=== PATIENT | male | born 1980 | race Caucasian/White ===

== ENCOUNTER → 2025-02-22 | Outpatient (CLI) | payer OTHER, SELFPAY ==
--- NOTE | 2025-02-22 17:11 | CT_ITS ---
PROCEDURE: ABDOMEN/PELVIS WITH CONTRAST 02/22/2025 REASON FOR EXAM: ABDOMINAL MASS TECHNIQUE: Procedure Code: [id number] Modality: CT Procedure: ABDOMEN/PELVIS WITH CONTRAST Coronal and Sagittal reconstruction series were provided. CONTRAST: VOLUME: mL One or more dose reduction techniques were used (e.g., Automated exposure control, adjustment of the mA and/or kV according to patient size, use of iterative reconstruction technique. FINDINGS: The visualized lung bases are clear. The liver, gallbladder, pancreas, spleen, adrenal glands, kidneys, and urinary bladder appear unremarkable. No evidence of a bowel obstruction. A moderate amount of stool is seen within the right side of the colon. Mild wall thickening of the transverse and descending colon may represent mild colitis. The appendix is visualized and unremarkable. No intraperitoneal free air or free fluid. No abdominal nor pelvic lymphadenopathy. No acute osseous abnormality. No acute fracture. 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 CT/Abdomen/Pelvis WITH Contrast IMPRESSION: Mild wall thickening of the transverse and descending colon may represent mild colitis. Please correlate clinically. Otherwise no acute abdominal or pelvic process. Reading Location: [id number]
== END | disposition home or self-care (01) ==
LOC: CT 17:08
PROVIDERS: PCP Physician Assistant; Referring Provider Physician Assistant; Visit Provider Physician Assistant
DX: R19.00 Intra-abdominal and pelvic swelling, mass and lump, unspecified site (principal)
CPT/HCPCS: 74177; Q9967

== ENCOUNTER 2025-03-15 05:49 | Day surgery (SDC) | payer OTHER, SELFPAY ==
[2025-03-15] VITALS (13 sets, daily range): BP systolic 119–150; BP diastolic 60–83; PULSE 58–79; RESP 14–20; TEMP 36.4–36.6; O2SAT 92–98; BMI 31.6
--- OUTSIDE RECORDS SUMMARY | 2025-03-15 05:51 | XMS RPT_ITS | CCD ---
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 Vehicle Crewman Name Role Phone Unavailable Primary Care Provider Unavailyimi BrooksAlexis PA-C, Luke E Unavailable [phone] Diabetes & Endocrinology Teixeira Unavailable KATELYN Attending Unavailable Unavailable Unavailable BEATRICE FEDERAL JUDGE-SUPERVISOR FORMING AND TEMPERING, JILLIAN Andrews Attending Unavaila ble FRIES FEDERAL JUDGE-SUPERVISOR FORMING AND TEMPERING, JILLIAN H Attending Unavaila ble JRJESSICA PAC Attending Unavailable JRJESSICA PAC Admitting Unavailable JR, JESSICA PAC Primary Care Unavailable ALEXIS, LUKE E Consulting Unavailable PROVIDER, UNKNOWN Consulting Unavailable ALEXIS, LUKE E Consulting Unavailable FRISEAN, JILLIAN TIRE SPECIALIST Admitting Unavailable FRISEAN, JILLIAN TIRE SPECIALIST Primary Care Unavailable FRISEAN, JILLIAN TIRE SPECIALIST Attending Unavailable PROVIDER, UNKNOWN Consulting Unavailable FRIES, JILLIAN TIRE SPECIALIST Admitting Unavailable FRIES, JILLIAN TIRE SPECIALIST Primary Care Unavailable FRIES, JILLIAN TIRE SPECIALIST Attending Unavailable ALEXIS, LUKE E Consulting Unavailable PROVIDER, UNKNOWN Consulting Unavailable ALEXIS, LUKE E Referring Unavailable BROOKLYNNBRETT Admitting Unavailable BROOKLYNNBRETT Primary Care Unavailable BROOKLYNNBRETT Attending Unavailable ALEXIS, LUKE E Consulting Unavailable PROVIDER, UNKNOWN Consulting Unavailable Edwin Zaldivar Attending Unavailable Alexis, Luke Referring Unavailable Alexis, Luke Primary Care Unavailable Alexis, Luke Referring Unavailable Alexis, Luke Attending Unavailable Alexis, Luke Primary Care Unavailable Alexis, Luke Primary Care Unavailable Edwin Zaldivar Referring Unavailable Edwin Zaldivar Attending Unavailable Medications Current Medications Medication Drug Class(es) Dates Sig (Normalized) Sig (Original) doxycycline hyclate 100 mg oral tablet (1 source) Tetracycline-class Drug Start: 01-26-2024 End: 02-02-2024 take 1 tablet by mouth twice daily doxycycline (VIBRA-TABS) 100 mg tablet Indications: Abscess Take 1 tablet by mouth two times a day for 7 days. 14 tablet 01/26/2024 02/02/2024 Active ibuprofen 800 mg oral tablet (1 source) Nonsteroidal Anti-inflammatory Drug Start: 06-22-2013 take 1 tablet by mouth every eight hours as needed for pain ibuprofen 800 mg tablet Indications: Back pain Take 1 tablet by mouth every 8 hours as needed for Pain (with food.). 30 tablet 0 06/22/2013 Active Completed/Discontinued Medications Medication Drug Class(es) Dates Sig (Normalized) Sig (Original) 1 ml testosterone cypionate 200 mg/ml injection (11 sources) Androgen Start: 06-25-2024 End: 07-23-2024 inject 0.6 mL by intramuscular injection every week testosterone cypionate 200 mg/mL intramuscular oil ; 0.6 mL weekly for 28 days Quantity: 10 {Milliliter} Refills: 0 Ordered: 25-Jun-2024 RAJ Espinoza Start: 25-Jun-2024 End: 23-Jul-2024 Status: Inactive Comments: or other applicable amount inject 0.6 mL by int ramuscular injection every week testosterone cypionate 100 mg/mL intramuscular oil ; 0.6mL weekly (100 mg/mL) Comment on above: or other applicable amount Problems Active Problems Problem Classification Problem Date Documented Da te Episodic/Chronic Intracranial injury (1 source) Other specified intracranial injury without loss of consciousness, initial encounter; Translations: [Other specified intracranial injury without loss of consciousness, initial encounter] Onset: 12-12-2024 Episodic Other connective tissue disease (3 sources) Pain in left arm; Translations: [Pain in left arm] Onset: 12-12-2024 Episodic Other endocrine disorders (17 sources) Hypotestosteronism; Translations: [Testicular hypofunction] 05-26-2024 Chronic Other gastrointestinal disorders (1 source) Intra-abdominal and pelvic swelling, mass and lump, unspecified site; Translations: [Intra-abdominal and pelvic swelling, mass and lump, unspecified site] Onset: 03-02-2025 Episodic Other non-traumatic joint disorders (1 source) Pain in left elbow; Translations: [Pain in left elbow] Onset: 12-12-2024 Episodic Skin and subcutaneous tissue infections (1 source) Abscess; Translations: [Cutaneous abscess, unspecified] 01-26-2024 Episodic Unclassified (6 sources) Follow up for chronic condition - The patient is here for follow-up of other condition(s) (low testosterone). The patient always takes the prescribed medications. No side effects noted. The patient has an active lifestyle but no regular exercise program. Note for "Chronic condition follow-up": Patient is here to establish care, and talk about testosterone. 05-26-2024 Past or Other Problems Problem Classification Problem Date Documented Da te Episodic/Chronic Blindness and vision defects (2 sources) Myopia; Translations: [Myopia, unspecified eye] Onset: 07-21-2016 07-21-2016 Episodic Genitourinary symptoms and ill-defined conditions (1 source) Blood in urine; Translations: [Hematuria] Onset: 01-24-2007 11-07-2023 Episodic Other male genital disorders (1 source) Hemospermia; Translations: [Hematospermia] Onset: 01-24-2007 11-07-2023 Episodic Other male genital disorders (1 source) Disorder of prostate; Translations: [Disorder of prostate, unspecified] Onset: 01-24-2007 11-07-2023 Episodic NEGATED: Highlighted row has been ruled out!Unclassified (2 sources) No Problem Information Available Results Test Name Value Interpretation Reference Range Facil ity Surgery Visit Reporton 03-03 Surgery Visit Report [facility] [address] [place] [address] [address] [place] [address] OFFICE VISIT Date of Service: 03/03/25 MR#: [id number] Acct: [id number] Name: KEON VICTORIA Rep #: [id number] : 1980 Provider: Dr. Edwin garcia MD Age/Sex: 44/M Location: [facility] Status: Signed Intake Vital Signs 03/03/25 14:09 Height 5 ft 9 in Weight: 225 lb BMI 33.2 BP 141/83 H Blood Pressure Location Rt brachial Position Sitting Respiration 16 Intake Visit Reasons: BILAT INGUINAL HERNIAS Chief Complaint: bilateral inguinal hernias Medical Concierge Required: No Is patient in pain?: No Allergies No Known Allergies Allergy (Unverified 03/03/25 14:09) Medications ???Medication ???Instructions ???Recorded ???Confirmed ???Type testosterone cypionate 200 mg/mL 100 mg IM QWEEK 03/03/25 03/03/25 History intramuscular oil Have you fallen in the past year?: No PFSH Medical History (Updated 03/03/25 @ 14:07 by Tonya Sandoval) Abdominal mass Testosterone deficiency Bulge in groin area Surgical History (Updated 03/03/25 @ 14:07 by Tonya Sandoval) History of umbilical hernia repair History of surgery on upper extremity Family History (Updated 03/03/25 @ 14:08 by Tonya Sandoval) Grandmother Breast cancer Father Heart disease Social History (Updated 03/03/25 @ 14:09 by Tonya Sandoval) Smoking Status: Never smoker Smokeless tobacco user: chewing tobacco alcohol intake: current HPI HPI HPI: The patient is a 44-year-old male who is being seen today for possible bilateral inguinal hernias. The patient has been having bilateral groin discomfort for several months now. He has noticed bulging in bilateral groin regions. He also described an incident about a month ago where he was doing some work on his vehicle, and noticed a sudden pain and swelling in the left side of his abdomen just above and lateral to the umbilicus. Patient had a recent CT scan that did not comment on any obvious ventral, spigelian or even inguinal hernias. He presents today for further evaluation and treatment of his symptoms and to discuss possible hernia repair if indicated Exam Const General: cooperative, healthy appearing, comfortable and well developed [facility] Head: normal to inspection Eyes General: appearance normal, both eyes and all related structures Neck Neck: normal visual inspection Resp Effort Inspection: normal respiratory effort and able to speak in complete sentences GI Inspection: normal to inspection Other: Patient has some discomfort just to the left of the left rectus muscle but above the umbilicus. I could not appreciate any obvious ventral or spigelian hernia. Other: Palpation of the groin regions reveals fairly small fat-containing bilateral inguinal hernias. Mild discomfort with palpation Assessment and Plan Assessment and Plan (1) Bulge in groin area: Status: Acute Comment: bilateral (2) Abdominal mass: Status: Acute Plan: The patient is a 44-year-old male with bilateral inguinal hernias. I have offered him bilateral robotic hernia repair with mesh. As far as the abdominal bulge that he described about a month ago, I really do not appreciate any obvious hernia in this vicinity on imaging or on examination. I did however suggest that we can visualize this area at the time of the surgery to rule out the possibility of a spigelian hernia. We discussed the details of the planned procedure including risks benefits alternatives and he wishes to proceed. This will be scheduled in a timely manner. Coding Level of Care Code Off vis,new,level 4 Diagnoses Bulge in groin area R19.09 Abdominal mass R19.00 Clinical Quality Measures Falls Risk Screening/Assistive Devices Have you fallen in the past year?: No 03/03/25 1511 Date Edwin Zaldivar MD Cosigner Signature: Date (if applicable) CC: Normal [facility] TESTOSTERONE, TOTAL & FREE, SERUM [CCL]on 02-24-2025 Free Testosterone 20.63 ng/dL High 1.78-8.03 [facility] Comment on above: Result Comment: Test ing performed by equilibrium dialysis (ED) and Liquid Chromatography-Tandem Mass Spectrometry (LC-MS/MS). This test was developed, and its performance characteristics determined by the [facility] Department of Pathology and Laboratory Medicine. It has not been cleared or approved by the FDA. The [facility] Department of Pathology and Laboratory Medicine is regulated under CLIA as qualified to perform high-complexity testing. This test is used for clinical purposes. It should not be regarded as investigational or for research. [address] [address] Jerzy Thao III, M.D. [id number] Performed By: #### 2 [id number] #### [facility],[address] [place] [address] Testosterone [Mass/Vol] 959.9 ng/dL High 240.0-950.0 [facility] Comment on above: Result Comment: Test ing performed by Liquid Chromatography- Tandem Mass Spectrometry (LC-MS/MS). This test was developed, and its performance characteristics determined by the [facility] Department of Pathology and Laboratory Medicine. It has not been cleared or approved by the FDA. The [facility] Department of Pathology and Laboratory Medicine is regulated under CLIA as qualified to perform high-complexity testing. This test is used for clinical purposes. It should not be regarded as investigational or for research. Performed By: #### 2 [id number] #### [facility],[address] [id number] Abdomen/Pelvis WITH Contrast on 02-22-2025 Abdomen/Pelvis WITH Contrast [facility] [address] [place] [address] Abdomen/Pelvis WITH Contrast MR#: [id number] Acct: [id number] Name: KEON VICTORIA Rep #: [id number] : 1980 M 44 From: Rocky Sneed MD PCP: SHILO Hilario Status: REG CLI Study: Abdomen/Pelvis WITH Contrast Date of Exam: Exam# [id number] Ordering Dr: Medhat Espinoza PROCEDURE: ABDOMEN/PELVIS WITH CONTRAST 02/22/2025 REASON FOR EXAM: ABDOMINAL MASS TECHNIQUE: Procedure Code: [id number] Modality: CT Procedure: ABDOMEN/PELVIS WITH CONTRAST Coronal and Sagittal reconstruction series were provided. CONTRAST: VOLUME: mL One or more dose reduction techniques were used (e.g., Automated exposure control, adjustment of the mA and/or kV according to patient size, use of iterative reconstruction technique. FINDINGS: The visualized lung bases are clear. The liver, gallbladder, pancreas, spleen, adrenal glands, kidneys, and urinary bladder appear unremarkable. No evidence of a bowel obstruction. A moderate amount of stool is seen within the right side of the colon. Mild wall thickening of the transverse and descending colon may represent mild colitis. The appendix is visualized and unremarkable. No intraperitoneal free air or free fluid. No abdominal nor pelvic lymphadenopathy. No acute osseous abnormality. No acute fracture. 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 CT/Abdomen/Pelvis WITH Contrast IMPRESSION: Mild wall thickening of the transverse and descending colon may represent mild colitis. Please correlate clinically. Otherwise no acute abdominal or pelvic process. Reading Location: [id number] CC: SHILO Hilario Director Of Sales: Signed Normal [facility] HEMATOCRITon 02-18-2025 Hematocrit (Bld) [Volume fraction] 48.5 % Normal 40.0 - 52.0 [facility] Comment on above: Performed By: #### 2 [id number] #### [facility],[address] [place] [address] HEMOGLOBINon 02-18-2025 Hemoglobin (Bld) [Mass/Vol] 17.0 g/dL Normal 13.0 - 17.5 [facility] Comment on above: Performed By: #### 2 [id number] ####[facility],[address] [place], [place] [id number] SGOT (AST)on 02-18-2025 AST [Catalytic activity/Vol] 23 U/L Normal 15 - 37 [facility] Comment on above: Performed By: #### 2 [id number] #### [facility],[address] [place] [address] SGPT (ALT)on 02-18-2025 ALT [Catalytic activity/Vol] 39 U/L Normal 16 - 63 [facility] Comment on above: Performed By: #### 2 [id number] ####[facility],[address] [place], [place] [id number] TESTOSTERONE, FREE AND TOTAL , BY EQUILIBRIUM DIALYSIS AND MASS SPECTROMETRYon 02-18-2025 Testosterone [Mass/Vol] 959.9 ng/dL High 240.0-950.0 [facility] Comment on above: Order Comment: Speci men Type: BLOOD SPECIMEN Ordering Facility: [facility] Address: [address] [place] [address] Result Comment: Test ing performed by Liquid Chromatography-Tandem Mass Spectrometry (LC-MS/MS). This test was developed, and its performance characteristics determined by the [facility] Department of Pathology and Laboratory Medicine. It has not been cleared or approved by the FDA. The [facility] Department of Pathology and Laboratory Medicine is regulated under CLIA as qualified to perform high-complexity testing. This test is used for clinical purposes. It should not be regarded as investigational or for research. Performed By: #### T ESTTF #### [facility] CLIA [id number] [address] [place] [address] [place] Testosterone Free [Mass/Vol] 20.63 ng/dL High 1.78-8.03 [facility] Comment on above: Order Comment: Speci men Type: BLOOD SPECIMEN Ordering Facility: [facility] Address: [address] [place] [address] Result Comment: Test ing performed by equilibrium dialysis (ED) and Liquid Chromatography-Tandem Mass Spectrometry (LC-MS/MS). This test was developed, and its performance characteristics determined by the [facility] Department of Pathology and Laboratory Medicine. It has not been cleared or approved by the FDA. The [facility] Department of Pathology and Laboratory Medicine is regulated under CLIA as qualified to perform high-complexity testing. This test is used for clinical purposes. It should not be regarded as investigational or for research. Performed By: #### T ESTTF #### [facility] CLIA [id number] [address] [place] [address] [place] MR ELBOW W/O LTon 12-14-2024 MR ELBOW W/O LT [address] [place] [address] Patient: KEON VICTORIA Phone#: : 1980 Age: 44 Gender: M Pt. Type: Out Account: [id number] Location: [facility] Ordering: JESSICA NORRIS Exam Date: 12/14/2024/13:40 Family Phys: MEDHAT ESPINOZA Charge Code: [id number] Physician: [place] Order #: [id number] Dose#: PROCEDURE: MRI ELBOW LT WITHOUT CONTRAST COMPARISON: None. INDICATIONS: Injury to fascia and tendon of left biceps TECHNIQUE: A complete multi-planar examination was performed without contrast. FINDINGS: Patient motion somewhat limits the evaluation. TENDONS EXTENSORS: There is mild hyperintense signal at the insertion of the common extensor tendon, series 4, image 17. FLEXORS: There is focal hyperintense signal at the insertion of the common flexor tendon, series 5, image 11 consistent with partial tear. OTHER: The biceps tendon demonstrates full-thickness tendon tear and retraction, approximately 6.4 cm, series 7, image 20 and series 4, image 21. There is edema near the insertion on the radial tuberosity. The brachialis tendon is intact. Triceps tendon is intact. LIGAMENTS RADIAL: Normal. No tear of the radial collateral, lateral ulnar collateral, or annular ligaments. ULNAR: Normal. No tear or bone marrow edema adjacent to the origin or insertion. MUSCLES: There is mild edema in the biceps brachii muscle. BONES: Normal. No edema, AVN, fracture, or significant arthropathy. EFFUSION: None. No synovitis or loose bodies. CUBITAL TUNNEL: Normal. Normal caliber and signal intensity of the ulnar nerve. OTHER: There is edema in the subcutaneous tissues of the medial elbow CONCLUSION: 1. Full-thickness biceps tendon tear with retraction 2. Common flexor tendon partial tear at the insertion 3. Common extensor tendon at the insertion mild hyperintense signal likely tendon strain versus mild partial tear Dictated by: Lisa Belle MD on 12/14/2024 at 20:35 Continued Report - Page 2 of 2 Patient: CAROLINACHRISTINEEL Robb Phone#: : 1980 Age: 44 Gender: M Pt. Type: Out Account: [id number] Location: 052 Ordering: JESSICA NORRIS Exam Date: 12/14/2024/13:40 Family Phys: MEDHAT ESPINOZA Charge Code: [id number] Physician: [place] Order #: [id number] Dose#: Approved by: Lisa Belle MD on 12/14/2024 at 21:08 Normal [facility] ORBITS (FOR MRI ONLY)on 11-27 ORBITS (FOR MRI ONLY) [address] [id number] Patient: CAROLINAKEON DICKSON. Phone#: : 1980 Age: 44 Gender: M Pt. Type: Out Account: [id number] Location: 052 Ordering: JESSICA JR Exam Date: 12/14/2024/14:07 Family Phys: MEDHAT ESPINOZA Charge Code: [id number] Physician: [place] Order #: [id number] Dose#: PROCEDURE: X-RAY ORBIT BILAT MRI SCREENING FOREIGN BODY COMPARISON: None. INDICATIONS: For MRI. FINDINGS: ORBITS: Negative for metallic foreign body. No radiopaque foreign object in the region of the orbits. OTHER: Radiopaque dental amalgam. CONCLUSION: 1. No radiopaque foreign object in the region of the orbits. Dictated by: Lisa Belle MD on 12/14/2024 at 16:42 Approved by: Lisa Belle MD on 12/14/2024 at 16:43 [facility] ED MED ADMINISTRATION DETAIL on 12-12-2024 ED MED ADMINISTRATION DETAIL Home Office Claim Specialist - KEON VICTORIA, : 1980, , [place] [address] [id number] 12/12/2024 Patient: KEON VICTORIA Sex: Male : 1980 Age: 44y MEASUREMENTS: Wt: 95.3 kg, Ht/Neal: 69.0 in, BMI: 31.01 ALLERGIES: No known drug allergies Medication Ordered Medication Administration Date/Time Ibuprofen (Motrin) 16:20 12/12 Ibuprofen (Motrin) PO 800 mg given. Allergies verified Given PO 800 mg (NOW and confirmed 5 rights. Information reviewed. Verbalizes 16:20 12/12/2024 x1) understanding. - 16:21 Christi Baum R.N. Scanned 1 of 1 [facility] ED NURSES CLINICAL NOTEon ED NURSES CLINICAL NOTE Nurse Narrative - KEON VICTORIA, : 1980, , Nurse Clinical Narrative [facility] [address] [place] [address] [id number] 12/12/2024 15:51:00 Patient: KEON VICTORIA Sex: Male : 1980 Age: 44y Disposition: Discharge to Home Disposition Decision Time: 16:31 12/12/2024 Departure Time: 16:52 12/12/2024 TRIAGE Arrived by private vehicle. Historian: (patient). Accompanied by family. Patient has a primary care physician. Primary physician (medhat hussein). Triage time: 15:56 12/12/2024. Acuity: LEVEL 3. Chief Complaint: INJURY TO THE LEFT ARM. ( pt was playing in a softball tournament and overswung the bat and felt a pop in his left bicep and felt/saw his bicep muscle curl up. pt went to the outfield and tried to use his arm to catch a fly ball and couldn't life his left arm and got hit in the head with a softball.). SEPSIS SCREEN: NEGATIVE. SIRS criteria negative: heart rate greater than 90. No possible sources of infection. -- 16:00 12/12/24 AMNA Yao R.N. 15:58 12/12/24. BP: 138/96 MAP: 110. HR: 111. RR: 20. O2 saturation: 93% Temperature: 98.7 F. Pain level now 5/10. -- 16:00 12/12/24 AMNA Yao R.N. Measurements: 16:00 12/12/24 Wt: 95.3 kg, Ht/Neal: 69.0 in, BMI: 31.01 -- 16:00 12/12/24 CARLINT Aditya Yao R.N. Medications: testosterone cypionate 200 mg/mL intramuscular oil -- 16:03 12/12/24 AMNA Yao R.N. 1 of 3 Nurse Narrative - KEON VICTORIA, : 1980, , Allergies: no known drug allergies -- 15:58 12/12/24 AMNA Yao R.N. Problems: no known problem -- 15:58 12/12/24 AMNA Yao R.N. Surgeries: no known surgical history -- 15:58 12/12/24 AMNA Yao R.N. History 15:56 12/12/24. SOCIAL HX: History of daily chewing tobacco use. Occasional alcohol use. No drug use. The patient has not traveled outside the [place] Infectious disease exposure: No infectious disease exposure. ABUSE ASSESSMENT: Abuse denied. SELF HARM ASSESSMENT: Self harm assessment was performed. The patient answered "no" to the question(s) "Do you have thoughts of harming or killing yourself?" and "Do you have a plan for harming or killing yourself?". FALL RISK ASSESSMENT: Fall risk assessment completed. No risk factors identified. -- 16:00 12/12/24 AMNA Yao R.N. 16:12/12/24. SOCIAL HX: Never smoker. -- 16:12/12/24 AMNA Yao R.N. Interventions 15:56 12/12/24. Advanced care plan discussed with patient. Patient does not have advanced directive. -- 16:00 12/12/24 AMNA Yao R.N. PHYSICAL ASSESSMENT 2 of 3 Nurse Narrative - KEON VICTORIA, : 1980, , 16:20 12/12/24. GENERAL / NEURO / PSYCH: Oriented X 4. Alert. Appears in no acute distress. ( Pt arrives ambulatory to ER#5 c/o left upper arm extremity injury while trying to hit a softball with a bat. Pt has a bulge noted to his left upper arm with limited ROM with extension. Pt also reports he was hit in the head with a softball because he tried to catch the ball and his arm would not flex leaving the softball to hit him in the head.). EXTREMITIES: Extremities do not exhibit normal ROM. Capillary refill is less than 2 seconds in the extremities. Extremity pulses are within normal limits. Neuro-vascular status intact to the extremity. Left arm: tenderness, swelling and deformity of the medial aspect of upper arm. No erythema, ecchymosis, laceration, abrasion or puncture wound. No foreign body. SKIN: Skin intact. Skin is warm and dry. -- 16:30 12/12/24 AMNA Caro R.N. 16:20 12/12/24. GENERAL / NEURO / PSYCH: Pupillary exam: Pupils are equal, round, and reactive to light. Right pupil 3mm. Left pupil: 3mm. -- 16:30 12/12/24 AMNA Caro R.N. NURSING PROGRESS NOTES 16:03 12/12/24. Patient transported to radiology by stretcher with distribution technician. -- 16:03 12/12/24 AMNA Caro R.N. 16:20 12/12/24. Sling applied to left arm by nurse; distal pulses intact, sensation intact and motor function within normal limits. -- 16:27 12/12/24 AMNA Caro R.N. 16:20 12/12/24. Ibuprofen (Motrin) PO 800 mg given. Allergies verified and confirmed 5 rights. Information reviewed. Verbalizes understanding. -- 16:21 12/12/24 AMNA Caro R.N. DISPOSITION / DISCHARGE Departure time: 16:52 12/12/2024. Condition at departure: improved. Discharge instructions provided and reviewed with the patient. Patient verbalized understanding. Written instructions provided in Bel[place]ian. The patient was discharged by the physician. The patient was discharged home and accompanied by spouse. The patient left ambulatory and via private vehicle. Spouse driving. -- 16:53 12/12/24 EDT Guerda Caro R.N. (Electronically signed by (more content not included)... Normal [facility] ED ORDER SHEET (CPOE ONLY)on 12-12-2024 ED ORDER SHEET (CPOE ONLY) Order Sheet - KEON VICTORIA, : 1980, , Order Sheet [address] [address] [id number] 12/12/2024 Patient: KEON VICTORIA Sex: Male : 1980 Age: 44y MEASUREMENTS: Wt: 95.3 kg, Ht/Neal: 69.0 in, BMI: 31.01 ALLERGIES: No known drug allergies MEDICATION/IV/DRIP/FL UID ORDERS Order Description Priority Entered Acknowledged Completed Ibuprofen (Motrin) PO800 mg 15:55 12/12/2024 16:02 16:21 (NOW x1) Brett Overton, 12/12/2024 12/12/2024 Guerda Sharpe R.NDeni RDeniN. LAB ORDERS Order Description Priority Entered Acknowledged Collected Completed DIAGNOSTIC STUDY ORDERS Order Description Priority Entered Acknowledged Completed Humerus L 2V Stat Stat 15:55 12/12/2024 16:02 16:55 Brett Overton, 12/12/2024 12/12/2024 Guerda Sharpe R.N. R.Aden. Reason for Study: Arm Pain STAFF ORDERS Order Description Priority Entered Acknowledged Collected Completed 1 of 2 Order Sheet - KEON VICTORIA, : 1980, , [Electronically signed by Brett Overton D.O. (12/12/2024 22:01 EDT)] 2 of 2 Normal [facility] ED PHYSICIAN CLINICAL REPORT on 12-12-2024 ED PHYSICIAN CLINICAL REPORT Narrative - KEON VICTORIA, : 1980, , Physician Clinical Narrative [address] [address] [id number] 12/12/2024 15:51:00 Patient: KEON VICTORIA Sex: Male : 1980 Age: 44y Disposition: Discharge to Home Disposition Decision Time: 16:31 12/12/2024 Departure Time: 16:52 12/12/2024 Measurements Wt: 95.3 kg, Ht/Neal: 69.0 in, BMI: 31.01 Initial Vital Sign Measured Time BP MAP HR RR O2Sat ETCO2 Temp Pain GCS RTS 15:58 12/12/2024 138/96 110 111 20 93% 98.7 F 5 Time Seen: 15:48 12/12/2024. Arrived- By private vehicle. Historian- patient. HISTORY OF PRESENT ILLNESS Chief Complaint: Injury to the left arm and Chief Complaint- Patient was swinging a bat and when he did he felt a pull as distal bicep then it kind of came up like a Dima. He then continued to play ball and there is a ball in the outfield and he can not put up his hand to grab it it was in his left hand on his glove. It then hit his head. Patient has been getting a in the park home run. And he presents to the emergency department because of pain to his biceps. The injury happened just prior to arrival. Occurred at an athletic field. Twisting injury. REVIEW OF SYSTEMS MUSCULOSKELETAL: No swelling. NEUROLOGICAL: The patient has had weakness. No tingling. SKIN: No suspected foreign body or skin laceration. 1 of 3 KEON Carolina, : 1980, , PAST HISTORY See nurses notes. no known problem Surgeries: no known surgical history Medications: testosterone cypionate 200 mg/mL intramuscular oil Allergies: no known drug allergies SOCIAL HISTORY Occasional alcohol use. No drug use. ADDITIONAL NOTES The nursing notes have been reviewed. PHYSICAL EXAM Appearance: Alert. Oriented X3. No acute distress. Head: Head atraumatic. Eyes: Pupils equal, round and reactive to light. Eyes normal inspection. ENT: Ears normal. Nose normal. Neck: Normal inspection. Neck supple. CVS: Normal heart rate and rhythm. Heart sounds normal. Respiratory: No respiratory distress. Breath sounds normal. Abdomen: No visible injury. Soft and nontender. Back: Normal inspection. No tenderness. Skin: Skin warm and dry. Normal skin color. Normal skin turgor. Extremities: Left arm. Neurovascular intact distally. (patient has a defect in the left bicipital groove of the left arm. Consistent with bicept tear system of the bicep tear). 2 of 3 Joey KEON ALBARADO, : 1980, , Neuro, Vascular and Tendons: Sensation intact. Motor intact. Neuro: Oriented X 3. No motor deficit. PROGRESS AND PROCEDURES MEDICAL DECISION MAKING: (Patient was swinging a bat and when he did he felt a pull as distal bicep then it kind of came up like a Dima. He then continued to play ball and there is a ball in the outfield and he can not put up his hand to grab it it was in his left hand on his glove. It then hit his head. Patient has been getting a in the park home run. And he presents to the emergency department because of pain to his biceps. patient has a deformity of the biceps on the left. Had x-rays returned unremarkable. We will place him in a sling and be discharged home he did a ball did hit his head he is acting appropriate he is neurovascularly intact. And he is told return if any problems concerns all follow up with Dr. Ramsey for his bicep tear.). Disposition: Condition: stable. Discharge decision based on the following: patient's condition is stable; patient's exam is stable. CLINICAL IMPRESSION Acute upper extremity pain involving the left upper arm and left elbow (left bicep tear). Minor closed head injury. DISCHARGE INSTRUCTIONS Apply ice. Wear sling. Rest. Follow-up with: Edwin Pope MD, [facility], Orthopedic, Phone: [phone], [facility] [place] [address]. Follow up in three days. Call for an appointment. (use sling. to range motion exercises 10 reps every hour while awake. return if any problems or concerns. if not acting normal return immediately to emergency department.). Medhat Ramesh PA-C, [facility], [facility], Phone: [phone], [address] [place] [address]. Follow up in three days. Call for an appointment. (follow up Medhat for your head injury). (Electronically signed by Brett Overton D.O. 12/12/24 22:01:50 EDT) Generated by [facility] 3 of 3 Normal [facility] ED SUPER BILLon 12-12-2024 ED SUPER BILL [facility] - KEON VICTORIA, : 1980, , [place] [id number] 12/12/2024 Patient: KEON VICTORIA Sex: Male : 1980 Age: 44y Item Professional Category Description Facility Code Code Quantity Fee Total Nurse/E/M EMERGENCY 292022 1 $0.00 $0.00 DEPARTMENT VISIT MODERATE SEVERITY (77984-74) Grand Total $0.00 Providers Brett Overton D.O. Chief Complaint Injury to the left arm and Chief Complaint- Patient was swinging a bat and when he did he felt a pull as distal bicep then it kind of came up like a Dima. He then continued to play ball and there is a ball in the outfield and he can not put up his hand to grab it it was in his left hand on his glove. It then hit his head. Patient has been getting a in the [place] home run. And he presents to the emergency department because of pain to his biceps. Principal Diagnosis 1 of 2 [facility] - KEON VICTORIA, : 1980, , Acute upper extremity pain involving the left upper arm and left elbow (left bicep tear). Minor closed head injury. ICD-10 Codes M79.622: Pain in left upper arm M25.522: Pain in left elbow S06.890A: Other specified intracranial injury without loss of consciousness, initial encounter 2 of 2 [facility] ED VISIT SUMMARYon ED VISIT SUMMARY Visit Overview - KEON VICTORIA, : 1980, , Visit [address] [address] [id number] 12/12/2024 Patient: KEON VICTORIA Sex: Male : 1980 Age: 44y 12/12/2024 10:01 PM EDT ED Arrival:15:51 12/12/2024 EDT Status: Recent Travel:no Language:eng Adv Directive:No Isolation Status: Ethnicity:N Fall Risk:no risk Infectious Disease Exposure:no Measurements:5'9" / 175.3 Self-Harm Status:no risk Sepsis Screen:negative cm 210.0 lb / 95.3 kg 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 pt went to the outfield and tried to use his arm to catch a fly ball and couldn't life his left arm and got hit in the head with a softball. ) ALLERGIES No Known Drug Allergies HOME MEDICATIONS 1 of 3 Visit Overview - KEON VICTORIA, : 1980, , testosterone cypionate 200 mg/mL intramuscular oil PAST MEDICAL HISTORY / PROBLEMS None See nurses notes PAST SURGICAL HISTORY No Surgeries SOCIAL HISTORY Smoking status: No Alcohol use: Yes Drug use: No ED COURSE MEDICATIONS GIVEN IN EMERGENCY DEPARTMENT 16:20 12/12/24 Ibuprofen (Motrin) PO 800 mg IV SITE INFORMATION INTAKE OUTPUT REASSESMENT (most recent) 16:20 12/12/24. GENERAL / NEURO / PSYCH: Pupillary exam: Pupils are equal, round, and reactive to light. Right pupil 3mm. Left pupil: 3mm. VITAL SIGNS First Vitals Last Vitals Temp 15:58 12/12/24 98.7 F Temp 15:58 12/12/24 98.7 F BP 15:58 12/12/24 138/96 BP 15:58 12/12/24 138/96 HR 15:58 12/12/24 111 HR 15:58 12/12/24 111 RR 15:58 12/12/24 20 RR 15:58 12/12/24 20 O2 Sat 15:58 12/12/24 93% O2 Sat 15:58 12/12/24 93% 2 of 3 Visit Overview - KEON VICTORIA, : 1980, , First Vitals Last Vitals Pain 15:58 12/12/24 5 Pain 15:58 12/12/24 5 ETCO2 15:58 12/12/24 ETCO2 15:58 12/12/24 GCS 15:58 12/12/24 GCS 15:58 12/12/24 RTS 15:58 12/12/24 RTS 15:58 12/12/24 PROCEDURES NURSING INTERVENTIONS LABS / STUDIES LABS / STUDIES ORDERED Humerus L 2V CLINICAL IMPRESSION ACUTE UPPER EXTREMITY PAIN INVOLVING THE LEFT UPPER ARM AND LEFT ELBOW (LEFT BICEP TEAR) MINOR CLOSED HEAD INJURY 3 of 3 Normal [facility] ED VITALS FLOW SHEETon 12-12 ED VITALS FLOW SHEET Vitals - KEON VICTORIA, : 1980, , Vital Sign Flow Sheet [address] [address] [id number] 12/12/2024 Patient: KEON VICTORIA Sex: Male : 1980 Age: 44y Measurements Wt: 95.3 kg, Ht/Neal: 69.0 in, BMI: 31.01 Measured Time BP MAP HR RR O2Sat ETCO2 Temp Pain GCS RTS 15:58 12/12/2024 138/96 110 111 20 93% 98.7 F 5 1 of 1 Normal [facility] HUMERUS LTon 12-12-[address] [address] Patient: KEON VICTORIA. Phone#: : 1980 Age: 44 Gender: M Pt. Type: ER Account: [id number] Location: [facility] Ordering: BRETT OVERTON Exam Date: 12/12/2024/16:07 Family Phys: LORA SANDY Charge Code: 845275 Physician: [place] Order #: [id number] Dose#: PROCEDURE: X-RAY HUMERUS LT 2 VIEWS COMPARISON: None. INDICATIONS: Pain. FINDINGS: BONES: Normal. No significant arthropathy or acute abnormality. SOFT TISSUES: Negative. No visible soft tissue swelling. EFFUSION: None visible. OTHER: Negative. CONCLUSION: No acute disease. Dictated by: Viviana Madden MD on 12/12/2024 at 22:30 Approved by: Viviana Madden MD on 12/12/2024 at 22:33 [facility] TFTESTon 10-25-2024 Free Testost Direct 9.5 pg/mL Normal 6.8-21.5 [facility] MA[facility] Comment on above: Result Comment: Perf ormed At: [facility] [place] [id number] [place], [place] [id number] Ruel Zarco MD Ph:[phone] Performed At: [facility] [place] [address] [place], [place] [id number] Bennie Hong PhD Ph:[phone] Performed By: #### H H, 586158, AST, ALT #### [place] [address] Testosterone Lvl 590 ng/dL Normal 264-916 [facility] MA[facility] Comment on above: Result Comment: Adul t male reference interval is based on a population of healthy nonobese males (BMI <30) between 19 and 39 years old. jose Woodward.al. JCEM 2017,102;0904-0921. PMID: [id number]. Performed By: #### H H, 908690, AST, ALT #### [place] [address] ALT/SGPTon 10-22-2024 ALT [Catalytic activity/Vol] 34 U/L Normal 12-55 [facility] Comment on above: Performed By: #### H H, 292993, AST, ALT #### [place] [address] Henry 10-22-2024 AST [Catalytic activity/Vol] 27 U/L Normal 8-34 [facility] Comment on above: Performed By: #### H H, 027162, AST, ALT #### [place] [id number] HHon 10-22-2024 Hematocrit (Bld) [Volume fraction] 50.0 % Normal 40.0-52.0 [facility] Comment on above: Performed By: #### H H, 180224, AST, ALT #### [place] [address] Hgb 17.3 G/dL Normal 13.0-17.5 [facility] Comment on above: Performed By: #### H H, 713743, AST, ALT #### [place] [address] TFTESTon 08-01-2024 Free Testost Direct 1.8 pg/mL Low 6.8-21.5 [facility] Comment on above: Result Comment: Perf ormed At: [address] [id number] Ruel Zarco MD Ph:[phone] Performed At: [facility] [id number] Bennie Hong PhD Ph:[phone] Performed By: #### H H, 187523, AST, ALT #### [place] [address] Testosterone Lvl 121 ng/dL Low 264-916 [facility] Comment on above: Result Comment: Adul t male reference interval is based on a population of healthy nonobese males (BMI <30) between 19 and 39 years old. Crissy et.al. JCEM 2017,102;1841-8806. PMID: [id number]. Performed By: #### H H, 296680, AST, ALT #### [place] [address] SOMATon 07-30-2024 IGF I 265 ng/mL Normal 84-270 [facility] Comment on above: Result Comment: Perf ormed At: [address] [id number] Ruel Zarco MD Ph:[phone] Performed By: #### H H, 571027, AST, ALT #### [place] [address] .GFRon 07-27-2024 Estimated Glomerular Filtration Rate 84 ml/min/1.73sqm Normal [facility] Comment on above: Result Comment: Stages of Chronic Kidney Disease (CKD) Stage Description eGFR(ml/min/1.73 sq.m.) CKD 1 Normal kidney function or >=90 normal kindney function with possible kidney damage (ex. Proteinuria) CKD 2 Kidney damage with mild loss 60-89 of kidney function CKD 3a Mild to moderate loss of kidney 45-59 function CKD 3b Moderate to severe loss of 30-44 of kindey function CKD 4 Severe loss of kidney function 15-29 CKD 5 Kidney failure <15 Note: (go live 2024) the eGFR calculation was updated to the 2020 CKD-EPI creatinine equation without a race factor to calculate the eGFR results. Performed By: #### H H, 854985, AST, ALT #### [place] [address] .Manual Diffon 07-27-2024 Basophil %, Manual 0.0 % Normal 0.0-2.5 [facility] Comment on above: Performed By: #### P SA, FSH, CK, CBC, DIFF, LH, TSH, FT4, 087875, GFR, PETE, MORPH, CMP, [id number], PROL #### [place] [address] Basophil, Abs Manual 0.0 10 3/mcL Normal 0.0-0.3 [facility] Comment on above: Performed By: #### P SA, FSH, CK, CBC, DIFF, LH, TSH, FT4, 925457, GFR, PETE, MORPH, CMP, [id number], PROL #### [place] [address] Eosinophil %, Manual 7.0 % High 0.0-6.0 [facility] Comment on above: Performed By: #### P SA, FSH, CK, CBC, DIFF, LH, TSH, FT4, 015530, GFR, PETE, MORPH, CMP, [id number], PROL #### [place] [address] Eosinophil, Abs Manual 0.5 10 3/mcL Normal 0.0-0.7 [facility] Comment on above: Performed By: #### P SA, FSH, CK, CBC, DIFF, LH, TSH, FT4, 447637, GFR, PETE, MORPH, CMP, [id number], PROL #### [place] [address] Lymphocyte %, Manual 27.0 % Normal 20.0-40.0 [facility] Comment on above: Performed By: #### P SA, FSH, CK, CBC, DIFF, LH, TSH, FT4, 425796, GFR, PETE, MORPH, CMP, [id number], PROL #### [address] [address] Lymphocyte, Abs Manual 1.9 10 3/mcL Normal 0.9-4.3 [facility] Comment on above: Performed By: #### P SA, FSH, CK, CBC, DIFF, LH, TSH, FT4, 745459, GFR, PETE, MORPH, CMP, [id number], PROL #### [address] [address] Monocyte %, Manual 8.0 % Normal 2.0-13.0 [facility] Comment on above: Performed By: #### P SA, FSH, CK, CBC, DIFF, LH, TSH, FT4, 064167, GFR, PETE, MORPH, CMP, [id number], PROL #### [address] [address] Monocyte, Abs Manual 0.6 10 3/mcL Normal 0.1-1.4 [facility] Comment on above: Performed By: #### P SA, FSH, CK, CBC, DIFF, LH, TSH, FT4, 228344, GFR, PETE, MORPH, CMP, [id number], PROL #### [address] [address] Neutrophil %, Manual 58.0 % Normal 50.0-75.0 [facility] Comment on above: Performed By: #### P SA, FSH, CK, CBC, DIFF, LH, TSH, FT4, 213072, GFR, PETE, MORPH, CMP, [id number], PROL #### [address] [address] Neutrophil, Abs Manual 4.1 10 3/mcL Normal 2.3-8.1 [facility] Comment on above: Performed By: #### P SA, FSH, CK, CBC, DIFF, LH, TSH, FT4, 659590, GFR, PETE, MORPH, CMP, [id number], PROL #### [address] [address] Nucleated RBC 0.0 /100 WBC Normal [facility] Comment on above: Performed By: #### P SA, FSH, CK, CBC, DIFF, LH, TSH, FT4, 916471, GFR, PETE, MORPH, CMP, [id number], PROL #### [place] [id number] .Morphon 07-27-2024 RBC morphology finding Nom (Bld) Normal [facility] MAIN Comment on above: Performed By: #### P SA, FSH, CK, CBC, DIFF, LH, TSH, FT4, 124292, GFR, PETE, MORPH, CMP, [id number], PROL #### [place] [address] Platelet Clumps Few Normal [facility] Comment on above: Performed By: #### P SA, FSH, CK, CBC, DIFF, LH, TSH, FT4, 884127, GFR, PETE, MORPH, CMP, 877898, PROL #### [place] [address] Platelet Estimate Normal [facility] MAIN Comment on above: Performed By: #### P SA, FSH, CK, CBC, DIFF, LH, TSH, FT4, 093263, GFR, PETE, MORPH, CMP, [id number], PROL #### [place] [address] CBCon 07-27-2024 Erythrocyte distribution width (RBC) [Ratio] 14.1 % Normal 11.5-15.5 [facility] Comment on above: Performed By: #### P SA, FSH, CK, CBC, DIFF, LH, TSH, FT4, 172874, GFR, PETE, MORPH, CMP, 104478, PROL #### [place] [address] Hematocrit (Bld) [Volume fraction] 51.3 % Normal 40.0-52.0 [facility] Comment on above: Performed By: #### P SA, FSH, CK, CBC, DIFF, LH, TSH, FT4, 049514, GFR, PETE, MORPH, CMP, [id number], PROL #### [place] [address] Hgb 17.7 G/dL High 13.0-17.5 [facility] Comment on above: Performed By: #### P SA, FSH, CK, CBC, DIFF, LH, TSH, FT4, 482070, GFR, PETE, MORPH, CMP, 120973, PROL #### [place] [address] MCH (RBC) [Entitic mass] 30.1 pg Normal 27.0-33.0 [facility] Comment on above: Performed By: #### P SA, FSH, CK, CBC, DIFF, LH, TSH, FT4, 065439, GFR, PETE, MORPH, CMP, [id number], PROL #### [place] [address] MCHC 34.4 G/dL Normal 32.0-36.0 [facility] Comment on above: Performed By: #### P SA, FSH, CK, CBC, DIFF, LH, TSH, FT4, 414566, GFR, PETE, MORPH, CMP, [id number], PROL #### [place] [address] MCV (RBC) [Entitic vol] 87.4 fL Normal 81.0-100.0 [facility] Comment on above: Performed By: #### P SA, FSH, CK, CBC, DIFF, LH, TSH, FT4, 617991, GFR, PETE, MORPH, CMP, [id number], PROL #### [place] [address] Platelet 232 10 3/mcL Normal 150-450 [facility] Comment on above: Performed By: #### P SA, FSH, CK, CBC, DIFF, LH, TSH, FT4, 894002, GFR, PETE, MORPH, CMP, [id number], PROL #### [place] [address] Platelet mean volume (Bld) [Entitic vol] 7.7 fL Normal 6.4-10.5 [facility] Comment on above: Performed By: #### P SA, FSH, CK, CBC, DIFF, LH, TSH, FT4, 750337, GFR, PETE, MORPH, CMP, [id number], PROL #### [place] [address] RBC 5.87 10 6/mcL Normal 4.50-6.00 [facility] Comment on above: Performed By: #### P SA, FSH, CK, CBC, DIFF, LH, TSH, FT4, 282633, GFR, PETE, MORPH, CMP, [id number], PROL #### [place] [address] WBC 7.1 10 3/mcL Normal 4.5-10.8 [facility] Comment on above: Performed By: #### P SA, FSH, CK, CBC, DIFF, LH, TSH, FT4, 639820, GFR, PETE, MORPH, CMP, [id number], PROL #### [place] [address] CKon 07-27-2024 CK [Catalytic activity/Vol] 275 U/L High 7-185 [facility] Comment on above: Performed By: #### H H, 858008, AST, ALT #### [address] 07-27-2024 Albumin Level 4.4 G/dL Normal 3.2-4.8 [facility] Comment on above: Performed By: #### H H, 438764, AST, ALT #### [place] [address] Albumin/Globulin [Mass ratio] 1.6 {ratio} Normal 0.9-1.6 [facility] Comment on above: Performed By: #### H H, 633518, AST, ALT #### [place] [address] ALP [Catalytic activity/Vol] 61 U/L Normal 38-126 [facility] Comment on above: Performed By: #### H H, 034074, AST, ALT #### [place] [address] ALT [Catalytic activity/Vol] 36 U/L Normal 12-55 [facility] Comment on above: Performed By: #### H H, 593315, AST, ALT #### [place] [address] AST [Catalytic activity/Vol] 29 U/L Normal 8-34 [facility] Comment on above: Performed By: #### H H, 172973, AST, ALT #### [place] [address] Bili Total 0.40 mg/dL Normal 0.20-1.20 [facility] Comment on above: Result Comment: Use of this assay is not recommended for patients undergoing treatment with eltrombopag due to the potential for falsely elevated results. Performed By: #### H H, 982068, AST, ALT #### [place] [address] BUN/Creatinine Ratio 15.2 ratio Normal 10.0-22.0 [facility] Comment on above: Performed By: #### H H, 681300, AST, ALT #### [place] [address] Calcium [Mass/Vol] 9.5 mg/dL Normal 8.7-10.4 [facility] Comment on above: Performed By: #### H H, 416449, AST, ALT #### [place] [address] Chloride [Moles/Vol] 104 mmol/L Normal 98-110 [facility] Comment on above: Performed By: #### H H, 106975, AST, ALT #### [place] [address] CO2 [Moles/Vol] 25 mmol/L Normal 22-32 [facility] Comment on above: Performed By: #### H H, 910325, AST, ALT #### [place] [address] Creatinine [Mass/Vol] 1.12 mg/dL Normal 0.60-1.40 [facility] Comment on above: Result Comment: Test ing performed on [employer] analyzer using enzymatic creatinine methodology. Performed By: #### H H, 114019, AST, ALT #### [place] [address] Electrolyte Balance 12.0 mEq/L Normal 4.0-15.0 [facility] Comment on above: Performed By: #### H H, 583003, AST, ALT #### [address] [address] Globulin 2.8 G/dL Normal 1.5-3.8 [facility] Comment on above: Performed By: #### H H, 316868, AST, ALT #### [address] [address] Glucose [Mass/Vol] 86 mg/dL Normal 70-110 [facility] Comment on above: Performed By: #### H H, 570121, AST, ALT #### [address] [address] Potassium [Moles/Vol] 4.1 mmol/L Normal 3.5-5.0 [facility] Comment on above: Performed By: #### H H, 232249, AST, ALT #### [address] [address] Sodium [Moles/Vol] 141 mmol/L Normal 136-145 [facility] Comment on above: Performed By: #### H H, 145977, AST, ALT #### [place] [address] Total Protein 7.2 G/dL Normal 5.7-8.2 [facility] Comment on above: Performed By: #### H H, 948834, AST, ALT #### [address] [address] Urea nitrogen [Mass/Vol] 17.0 mg/dL Normal 8.0-22.0 [facility] Comment on above: Performed By: #### H H, 232954, AST, ALT #### [place] [address] CORTon 07-27-2024 Cortisol Level 13.1 mcg/dL Normal [facility] Comment on above: Result Comment: Pete isol AM Reference Range 6.5-26.0 mcg/dL Cortisol PM Reference Range 3.5-15.0 mcg/dL Performed By: #### H H, 821051, AST, ALT #### [address] [address] FSHon 07-27-2024 FSH 7.1 mIU/mL Normal 1.4-18.1 [facility] Comment on above: Result Comment: Adul t Female FSH Reference Ranges (03/22/99): Follicular phase 2.5 - 10.2 mIU/mL Midcycle phase 3.4 - 33.4 mIU/mL Luteal phase 1.5 - 9.1 mIU/mL Post menopausal 23.0 -116.3 mIU/mL Adult Male: 1.4 - 18.1 mIU/mL Performed By: #### H H, 654233, AST, ALT #### [place] [address] FT4on 07-27-2024 Free T4 [Mass/Vol] 1.66 ng/dL Normal 0.89-1.76 [facility] Comment on above: Result Comment: No te - New Reference Range in effect 19 Performed By: #### H H, 316380, AST, ALT #### [place] [address] LHon 07-27-2024 LH 1.4 mIU/mL Low 1.5-9.3 [facility] Comment on above: Result Comment: No te - New Reference Range in effect 19Adult Female LH Reference Ranges: Follicular phase 1.9 - 12.5 mIU/mL Midcycle phase 8.7 - 76.3 mIU/mL Luteal phase 0.5 - 16.9 mIU/mL Post menopausal 5.0 - 55.2 mIU/mL Performed By: #### P SA, FSH, CK, CBC, DIFF, LH, TSH, FT4, 858746, GFR, PETE, MORPH, CMP, [id number], PROL #### [place] [address] PROLon 07-27-2024 Prolactin 5.4 ng/mL Normal 2.0-18.0 [facility] Comment on above: Performed By: #### P SA, FSH, CK, CBC, DIFF, LH, TSH, FT4, 857537, GFR, PETE, MORPH, CMP, [id number], PROL #### [place] [place] [id number] PSAon 07-27-2024 Prostate Specific Antigen 0.85 ng/mL Normal 0.02-4.00 [facility] Comment on above: Result Comment: Dotty ent results determined by assays using different manufacturers for methods may not be comparable. Performed By: #### P SA, FSH, CK, CBC, DIFF, LH, TSH, FT4, [id number], GFR, PETE, MORPH, CMP, [id number], PROL #### [place] [id number] [place] [id number] TSHon 07-27-2024 TSH 2.735 mIU/mL Normal 0.550-4.780 [facility] Comment on above: Performed By: #### H H, [id number], AST, ALT #### [place] [id number] [place] [id number] Vital Signs Date Time Vital Sign Value Performing Clinician Julesi parul 05-26-2024 15:17-0500 Body height 177.8 cm [employer]alyan [employer] Work Phone: [employer]; [facility] 05-26-2024 15:17-0500 Body mass index (BMI) [Ratio] 29.99 kg/m2 [employer]an [employer] Work Phone: [employer]; [facility] [employer]. 05-26-2024 15:17-0500 Body surface area Derived from formula 2.13 m2 Stratopy PA-C Work Phone: [employer]; [facility] 05-26-2024 15:17-0500 Body weight 94.8 kg Stratopy PA-C Work Phone: [facility] [employer] [employer]. 05-26-2024 15:17-0500 Diastolic blood pressure 85 mm[Hg] Stratopy PA-C Work Phone: [facility].; [facility]. Comment on above: Patient Position: Sitting; Cuff Location : Left Arm; Cuff Size: Standard 05-26-2024 15:17-0500 Heart rate 97 /min Lulobo Espinoza PA-C Work Phone: [facility]. Comment on above: Pattern: Regular 05-26-2024 15:17-0500 Systolic blood pressure 126 mm[Hg] Medhat Espinoza PA-C Work Phone: [facility]. Comment on above: Patient Position: Sitting; Cuff Location : Left Arm; Cuff Size: Standard 01-26-2024 13:11-0400 Body temperature 97.5 [degF] 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 [employer]PER[employer] Work Phone: [facility] 01-26-2024 13:11-0400 Body weight 94.3 kg 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 [employer]PER[employer] Work Phone: [facility] 01-26-2024 13:11-0400 Diastolic blood pressure 86 mm[Hg] 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 [employer]PER[employer] Work Phone: [facility] 01-26-2024 13:11-0400 Heart rate 67 /min 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 [employer]PER[employer] Work Phone: [facility] 01-26-2024 13:11-0400 Respiratory rate 18 /min 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PER[employer] Work Phone: [facility] 01-26-2024 13:11-0400 SaO2% (BldA) [Mass fraction] 98 % 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 [employer]PERING Work Phone: [facility] 01-26-2024 13:11-0400 Systolic blood pressure 143 mm[Hg] 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 [employer]PER[employer] Work Phone: [facility] Encounters Encounter Date Encounter Type Care Provider Facility Start: 03-15-2025 ambulatory Medhat Kaur ty:[facility] Start: 03-03-2025 End: 03-03-2025 ambulatory Edwin Zaldivar Facility:[facility] Start: 02-22-2025 End: 02-22-2025 ambulatory Medhat Espinoza Facility:[facility] Start: 02-18-2025 End: 02-18-2025 ambulatory JILLIAN SIMMONS [facility] Start: 12-15-2024 [facility]: 12-14-2024 End: 12-14-2024 ambulatory JESSICA NORRSI [facility] Start: 12-12-2024 End: 12-12-2024 [facility]: 10-22-2024 End: 10-22-2024 ambulatory JILLIAN BARRON FEDERAL JUDGE-SUPERVISOR [employer]PER[employer] Facility:A Start: 07-27-2024 End: 07-27-2024 Historical Summary Medhat LAO-C Work Phone: [facility] 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 Start: 05-26-2024 End: 05-26-2024 Office outpatient new 30 minutes Medhat Espinoza PA-C Work Phone: [facility] Start: 05-26-[address] [facility] Start: 01-26-2024 End: 01-26-2024 Patient encounter procedure Beba Raines APRN.SUPERVISOR [employer]ING [employer]PERING Work Phone: [facility] Comment on above: Abscess (Primary Dx) Procedures Date Procedure Procedure Detail Performing Clinician Start: 10-22-2024 End: 10-22-2024 Most Recent Endo Report Medhat Espinoza PA-C Work Phone: Start: 07-27-2024 End: 07-27-2024 Most Recent Endo Report Medhat Espinoza PA-C Work Phone: Start: 08-10-2016 History of laser assisted in situ keratomileusis Status post LASIK surgery of both eyes Beba Raines APRN.JEAN Work Phone: Plan of Treatment Date Care Activity Detail Author Start: 12-29-2023 Covid-19 Vaccine ( season) Covid-19 Vaccine ( season) [facility] Start: 12-29-2023 Influenza vaccination Influenza Vacc ine (#1) [facility] Start: 2017 Lipid panel Lipid Screening [facility] Start: 2001 Hepatitis B Vaccine (1 of 3 - 19+ 3-dose series) Hepatitis B Vaccine (1 of 3 - 19+ 3-dose series) [facility] Start: 2001 Urine microalbumin profile DTa P,Tdap,Td Vaccine (1 - Tdap) [facility] Start: 2000 Anxiety Screening Anxiety Screening [facility] Start: 2000 Depression Screening Depression Scre ening [facility] Start: 2000 Hepatitis C screening Hepatitis C Sc reening [facility] Start: 2000 HIV screening HIV Screening [facility] Payers Date Payer Category Payer Self-pay 2024 Unknown [id number] 2023 Unknown [id number] 1982 Unknown [id number] 1982 Unknown [id number] 2.16.8 [id number] 1982 Unknown [id number] 2.16.8 [id number] 1982 Unknown [id number] 2.16.8 [id number] 1982 Unknown [id number] 2.16.8 [id number] 1982 Unknown [id number] 2.16.8 [id number] Unknown [id number] Unknown [id number] 2.16.8 [id number] Unknown [id number] 2.16.8 [id number] Unknown [id number] 2.16.8 [id number] Social History Date Type Detail Facility Start: [facility]-26-2024 [facility] Start: 01-26-2024 Tobacco use and exposure User of smokeless tobacco [facility] History of tobacco use Chews Tobacco [facility] Start: 01-26-2024 Alcoholic beverage intake Current non-drinker of alcohol (finding) [facility] Start: 01-26-2024 History of Social function [facility]; [facility] Start: 01-26-2024 Tobacco use panel [facility] Start: 1980 Sex assigned at Not on file [facility]; [facility] Work Phone: Tobacco smoking consumption unknown [facility] [employer]; [facility] Work Phone: Alcohol Use: Alcohol Use: ; None. [employer]; [facility] Tobacco Use: Tobacco Use: ; U ses chewing tobacco. [facility]; [employer] NEGATED: Highlighted row No Social History Information Available No Social History Information Available [employer]; [facility] Work Phone: Instructions 01-26-2024 Patient Instructions Note Date & Type Note Facility 01-26-2024 Instructions Beba Raines, BETTY.SUPERVISOR FORMING AND [employer]PERING - 01/26/2024 2:07 PM EDT ASSESSMENT/PLAN: 1. Abscess - ICD9: 682.9, ICD10: L02.91 - Begin treatment with. - Follow up for recheck in 3-5 days if symptoms worsen or fail to improve - DOXYCYCLINE HYCLATE 100 MG TABLET BID x 7 days Discussed plan of care with patient. Antibiotic prescribed with instructions on use. Patient advised to use warm compresses to area, do not manual express abscess. Answered all of patient's questions. Patient agreeable with care plan and verbalizes understanding. Aliya Mejia, Student TIRE SPECIALIST ABSCESS (BOIL): You have a skin abscess, or boil. Boils usually develop when Staph bacteria get into the small glands or hair follicles in the skin and form a pus pocket. You should not squeeze an abscess or boil to drain it; this can cause the infection to spread to other areas under the skin. Boils are contagious, so you should dispose of soiled bandages carefully and not share your towel or wash cloth with others. Soak the area in warm water for 20-30 minutes 3-4 times daily to help the healing. Oral antibiotics may be needed if the infection is severe or if it seems to be spreading. Please call your doctor if you have increased pain or swelling, chills or fever, red streaks going up the arm or leg, or continued pus drainage after 3-4 days. documented in this encounter [facility] History of Present illness Narrative 01-26-2024 Beba Raines APRN.JEAN - 01/26/2024 1:25 PM EDT Note Date & Type Note Facility 01-26-2024 History of Presen t illness Narrative Images from the original note were not included. Subjective Keon Victoria is a 43 year old male who presents swollen left eye x 3 days. HPI Patient states he has left under eye swelling that started yesterday and a small area under left eye that has the appearance of an abscess that started 4 days ago. Patient reports taking benadryl for the eye swelling today and using cold compresses. He reports that his left eye was significantly swollen upon awakening this morning. Area is tender to touch. He reports having nasal congestion and drainage and states he is unsure if the symptoms are related to what is going on with his left eye. Patient denies fever, nausea, vomiting, diarrhea, sore throat and headache. No eye globe pain, redness or drainage or changes in vision. Review of Systems Constitutional: Negative for chills and fever. HENT: Positive for congestion. Negative for ear pain, sinus pain and sore throat. Eyes: Negative for blurred vision, pain, discharge and redness. Respiratory: Negative. Cardiovascular: Negative. Gastrointestinal: Negative for abdominal pain, diarrhea, nausea and vomiting. Genitourinary: Negative. Musculoskeletal: Negative. Skin: Positive for rash. Neurological: Negative for headaches. Psychiatric/Behavioral: Negative. PAST MEDICAL HISTORY Diagnosis Date NEGATIVE HISTORY OF PAST SURGICAL HISTORY Procedure Laterality Date LASIK Bilateral 08/09/2016 RPR UMBILICAL HERNIA < 5 YRS REDUCIBLE 1988 Hernia repair, umbilical <5yr ALLERGIES Patient has no known allergies. MEDICATIONS doxycycline (VIBRA-TABS) 100 mg tablet Take 1 tablet by mouth two times a day for 7 days. ibuprofen 800 mg tablet Take 1 tablet by mouth every 8 hours as needed for Pain (with food.). FAMILY HISTORY Problem Relation Age of Onset other (brain tumor) Mother Heart Father mi at 35 Hypertension Father Cancer Maternal Grandmother breast Social History Tobacco Use Smoking status: Never Smokeless tobacco: Current Types: Chew Substance Use Topics Alcohol use: No BP 143/86 Pulse 67 Temp 36.4 C (97.5 F) Resp 18 Wt 94.3 kg (207 lb 14.3 oz) SpO2 98% Objective Physical Exam Vitals and nursing note reviewed. Constitutional: Appearance: Normal appearance. HENT: Head: Normocephalic. Right Ear: Tympanic membrane normal. Left Ear: Tympanic membrane normal. Nose: Congestion and rhinorrhea present. Mouth/Throat: Mouth: Mucous membranes are moist. Pharynx: Oropharynx is clear. Eyes: General: Lids are normal. Left eye: No discharge. Extraocular Movements: Extraocular movements intact. Conjunctiva/sclera: Conjunctivae normal. Comments: Edema noted to left under eye with small erythematous abscess, mild tenderness and pain. No drainage from area. Swollen area is firm, no area of fluctuance. Cardiovascular: Rate and Rhythm: Normal rate and regular rhythm. Pulses: Normal pulses. Heart sounds: Normal heart sounds. Pulmonary: Effort: Pulmonary effort is normal. Breath sounds: Normal breath sounds. Musculoskeletal: General: Normal range of motion. Cervical back: Neck supple. No tenderness. Lymphadenopathy: Cervical: No cervical adenopathy. Skin: General: Skin is warm and dry. Findings: Erythema present. Comments: Erythema and edema under left eye. Neurological: General: No focal deficit present. Mental Status: He is alert and oriented to person, place, and time. Psychiatric: Mood and Affect: Mood normal. Behavior: Behavior normal. ASSESSMENT/PLAN: 1. Abscess - ICD9: 682.9, ICD10: L02.91 - Begin treatment with. - Follow up for recheck in 3-5 days if symptoms worsen or fail to improve - DOXYCYCLINE HYCLATE 100 MG TABLET BID x 7 days Discussed plan of care with patient. Antibiotic prescribed with instructions on use. Patient advised to use warm compresses to area, do not manually express abscess. Answered all of patient's questions. Patient agreeable with care plan and verbalizes understanding. Aliya Mejia, Student TIRE SPECIALIST TEACHING PROVIDER (Physician/PA/FEDERAL JUDGE) NOTE OF PERSONAL INVOLVEMENT IN CARE: I have personally seen and examined the patient and performed the medical decision-making components. I have reviewed the Advanced Practice Registered Nurse (FEDERAL JUDGE) Student's documentation and verified the findings in the note as written. Any additions or changes are noted in bold/italics. Signature: Beba Raines Date: 01/26/2024 Time: 2:29 PM documented in this encounter [facility] Evaluation note Note Date & Type Note Facility Evaluation note Diagnosis Abscess- Primary Cellulitis and abscess of unspecified site documented in this encounter [facility] Summary Purpose Family History No Family History Records FoundNo Family History Records FoundNo Family History Records FoundNo Family History Records FoundNo Family History Records Found Advance Directives No Advanced Directives Records FoundNo Advanced Directives Records FoundNo Advanced Directives Records FoundNo Advanced Directives Records FoundNo Advanced Directives Records Found Additional Source Comments Source Comments (unrecognize d section and content) In the event this informatio n is protected by the Federal Confidentiality of Alcohol and Drug Abuse Patient Records regulations: The Federal rules restrict any use of the information to criminally investigate or prosecute any alcohol or drug abuse patient.[facility] Reason for Visit (unrecogniz ed section and content) Reason Comments Derm Problem Small knot under L e ye, red and puffy x3 days (unrecognized sect ion and content) No Status Records FoundNo Status Records FoundNo Status Records FoundNo Status Records FoundNo Status Records Found INFORMATION SOURCE (unrecogn ized section and content) DATE CREATED AUTHOR 05/28/2024 [facility] DATE CREATED AUTHOR AUTHOR'S ORGANIZ ATION 10/30/2024 [facility] DATE CREATED AUTHOR AUTHOR'S ORGANIZ ATION 02/25/2025 [facility] DATE CREATED AUTHOR AUTHOR'S ORGANIZ ATION 02/25/2025 [facility] DATE CREATED AUTHOR AUTHOR'S ORGANIZ ATION 03/10/2025 [facility] FOR RECORDS PERTAINING TO PATIENTS WHO ARE OR HAVE BEEN ENROLLED IN A CHEMICAL DEPENDENCY/SUBSTANCEABUSE PROGRAM, SOME INFORMATION MAY BE OMITTED. This clinical summary was aggregated from multiple sources. Caution should be exercised in using it in the provision of clinical care. This summary normalizes information from multiple sources, and as a consequence, information in this document may materially change the coding, format and clinical context of patient data. In addition, data may be omitted in some cases. CLINICAL DECISIONS SHOULD BE BASED ON THE PRIMARY CLINICAL RECORDS. [employer] [facility]. provides no warranty or guarantee of the accuracy or completeness of information in this document.
[2025-03-15] MEDS: Lactated Ringers 1,000 ML 15 ML IV (06:17)
--- NOTE | 2025-03-15 07:17 | PRE.ANES_ITS ---
ASA Classification* ASA Classification ASA Classification: 2 Assessment & Plan Anesthesia* Anesthesia Assessment Anesthesia Assessment: Discussed sedation and/or anesthesia options, risks, benefits, and alternatives with patient/parents/legal guardian/POA. Questions invited. The patient/parents/legal guardian/POA seems to understand and agrees to proceed with anesthesia plan. Reviewed the physical assessment, medical history, allergy history and patient home medications list prior to surgery/procedure/anesthetic and documented any changes. Performed airway and anesthesia risk assessments. Anesthesia Type Anesthesia Type: General History Source History Obtained from:: Patient and Chart Anesthesia Focused Assessment* Temperature: 97.7 F Pulse Rate: 58 Blood Pressure: 134/83 Respiratory Rate: 16 Pulse Ox: 96 Oxygen Delivery Method: Room Air Airway Assessment Mouth opens: >3 cm Mallampati Score: II Teeth Condition: Caps/Crowns (Patient has couple crowns. 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 When Was Last Pacemaker Check QUESTION #4 FULL TEXT: You/Your Family Experience fever (hyperthermia) with Anesthesia Last Oral Intake Last Oral intake: Last Oral Intake NPO since 21:30 03/15/25 06:18 Meds taken in AM with sips of No 03/15/25 06:18 water? 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 Female No 03/09/25 14:01 HX of Motion Sickness Yes 03/09/25 14:01 HX of N/V After Surgery No 03/09/25 14:01 Non-Smoker No 03/09/25 14:01 Duration of Surgery greater Yes 03/09/25 14:01 than 60 minutes Number of Risk Factors 2 03/09/25 14:01 PONV Score Moderate Risk 03/09/25 14:01 Height & Weight Height & Weight: Anesthesia: Height & Weight Height 5 ft 9 in 03/15/25 06:18 Weight: 97 kg 03/15/25 06:18 Body Mass Index (BMI) 31.6 03/15/25 06:18 Respiratory Assessment Respiratory Assessment - middle school sports coach: Respiratory Tract Infection Hx - 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 Has anyone observed you stop Yes 03/09/25 14:01 breathing during sleep? STOP Results Positive 03/09/25 14:01 QUESTION #5 FULL TEXT : Do you snore loudly (louder than talking or can be heard through closed doors)? 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 Specify any problems Hx of Preganancy in last 3 N/A 03/09/25 14:01 Months Nurse Filling Out Transfusion DSCHRIBER 03/09/25 14:01 & Questions: Date: 03/09/25 03/09/25 14:01 Time: 14:03 03/09/25 14:01 Patient unable to answer at this time (ie. confused, unrespo /Reproduction History /Reproductive History - middle school sports coach: /Reproductive Hx- middle school sports coach Hx Now No 03/09/25 14:01 Gestational Age (in weeks): EDC: Hx Hx Para Hx Section SAB No 03/09/25 14:01 Does the father of the baby or his family experience fever w Father of the baby Malignant Hypertension history comment Active Medications Active Medications: Current Medications Generic Name Dose Route Start Last Admin Trade Name Freq PRN Reason Stop Dose Admin Lactated Ringer's 1,000 mls @ 15 mls/hr 03/15/25 06:00 03/15/25 06:17 IV 15 mls/hr .Q48H DA Administration Cefazolin Sodium 2 gm/ Sodium 110 mls @ 200 mls/hr 03/15/25 07:00 Chloride IV 03/15/25 07:32 INTRAOP ONE PFSH Medical History Alcohol use Arthritis Back pain Gastric reflux Chewing tobacco dependence Abdominal mass Testosterone deficiency Bulge in groin area Home Medications Medication Instructions Recorded Last Taken Type testosterone cypionate 200 mg/mL 100 mg IM QWEEK 03/0302/27/25 History intramuscular oil Allergy/AdvReac Type Severity Reaction Status Date / Time No Known Allergies Allergy Verified 03/09/25 13:59 Family History Grandmother Breast cancer Father Heart disease Surgical History S/P LASIK surgery History of umbilical hernia repair History of surgery on upper extremity Social History Smoking Status: Never smoker Smokeless tobacco user: chewing tobacco alcohol intake: current Review of Systems (Anesthesia) ROS Narrative System reviewed and no additional complaints, except as documented.
--- NOTE | 2025-03-15 07:27 | PCM.HP.STD ---
HPI - General General Date of Admission: 03/15/25 Date of Service: 03/15/25 Chief Complaint: Bilateral inguinal hernias HPI Narrative BECKY FIGUEROA, is a 44 M who presents for elective repair of bilateral inguinal hernias [facility] Medical History Alcohol use Arthritis Back pain Gastric reflux Chewing tobacco dependence Abdominal mass Testosterone deficiency Bulge in groin area Home Medications Medication Instructions Recorded Last Taken Type testosterone cypionate 200 mg/mL 100 mg IM QWEEK 03/03/25 02/27/25 History intramuscular oil Allergy/AdvReac Type Severity Reaction Status Date / Time No Known Allergies Allergy Verified 03/09/25 13:59 Family History Grandmother Breast cancer Father Heart disease Surgical History S/P LASIK surgery History of umbilical hernia repair History of surgery on upper extremity Social History Smoking Status: Never smoker Smokeless tobacco user: chewing tobacco alcohol intake: current Vital Signs Vital Signs Vital Signs: 03/15/25 06:18 03/15/25 06:18 03/15/25 07:23 Temperature 97.7 F L 97.7 F L Temperature Source Temporal Pulse Rate 58 L 58 L Respiratory Rate 16 16 Respiratory Pattern Normal Blood Pressure 134/83 H 134/83 H Blood Pressure Mean 100 Blood Pressure Source Monitor Blood Pressure Position Semi-Fowlers Blood Pressure Location Right Arm Pulse Ox 96 96 Oxygen Delivery Method Room Air Room Air Weight Weight: 213 lb 13.574 oz Body Mass Index (BMI) 31.6 Physical Exam Const alert, oriented x3 and no apparent distress Assessment & Plan Assessment/Plan (1) Bulge in groin area: PLAN: Plan robotic bilateral inguinal heria repair
[2025-03-15] MEDS: Lidocaine 1% (5 ml sdv) 5 ML Vial IV (07:38)
[2025-03-15] MEDS: Midazolam 2 MG/2 ML Syringe IV (07:38)
[2025-03-15] MEDS: Cefazolin 1 GM/5 ML Vial 2 GM IV (07:43)
--- NOTE | 2025-03-15 09:29 | OP.PCM_ITS ---
Problems Associated Problem List Diagnoses (1) Bulge in groin area: Procedures Digestive 40xxx-49xxx: 14127-94 Lap ing hernia repair init; bilat Operative Report (Standard) Operative Information Date of Procedure: 03/15/25 Pre-Operative Diagnosis: Bilateral inguinal hernia Post-Operative Diagnosis: Same Surgery/Procedure Performed: Robotic bilateral inguinal hernia repair with mesh personnel director: Yes Client Care Specialist: Nicholas Franklin Tasks completed by first press operator: Closing, Trocar and Other Additional assistant general manager?: No Type of Anesthesia: General and Local RN Documented Start/Stop Times: Operation Date: 03/15/25 07:30 Case Time Into Pre-Op 03/15/25 05:59 Out of Pre-Op 03/15/25 07:28 Anesthesia Start 03/15/25 07:34 Into Room 03/15/25 07:34 Procedure Start 03/15/25 07:54 Procedure Start Time: 07:54 Procedure Stop Time: 09:40 Select all DRAINS/GRAFTS/IMPLANTS that apply: None Special Medications: 2 g Ancef IV Estimated Blood Loss: Minimal Specimen collected: No Description of surgery: The patient is a 44-year-old male who was recently seen through the office with bilateral inguinal hernias. I offered him a bilateral robotic inguinal hernia repair with mesh. He also recently described a bulge along the left side of his abdomen. We stated that we would evaluate for any possible hernias other than the inguinal hernias. We discussed details of the planned procedure including risks benefits and alternatives. He wished to proceed. The patient was brought to the operating room today following informed consent. Preoperative antibiotics were given and a timeout was performed. The abdomen is then prepped and draped in the usual sterile manner. A general anesthesia was induced. Once adequately sedated the abdomen was then prepped and draped in usual sterile manner. An 8 mm incision was made just above the umbilicus. A 5 mm trocar was placed optically through this incision. Once in place the abdomen was then fully insufflated with CO2 gas. A 5 mm 0 degree scope was inserted. There were no signs of bowel or vascular injury. There was some adhesed omentum to the undersurface of the umbilicus. We were able to then place an 8 mm robotic trocar on the right side of the abdomen. A similar trocar was placed on the left side. Both of these were placed without difficulty. These adhesions near the umbilicus were taken down using electrocautery and laparoscopic scissors. No obvious hernia was appreciated at the umbilicus or anywhere along the abdomen other than the groin. The original umbilical trocar was switched to an 8 mm robotic trocar as well. The patient was then placed in mild Trendelenburg positioning. The robot was appropriately docked. All instrumentation was inserted. The right sided hernia was repaired first. This was performed by first incising the peritoneum in a lateral to medial direction using scissors and electrocautery. A subperitoneal plane was then developed using blunt dissection. Anand's ligament was dissected out medially. Patient had a direct hernia that was reduced. Also patient had fairly sizable cord lipoma which was reduced as well. Once sufficient dissection was performed a 10 x 15 piece of ProGrip mesh was then selected. This was placed in antibiotic solution and was trimmed to the appropriate size to fit the dissection field. This was then inserted into the abdomen and laid in position. It covered over the region nicely. The peritoneum was then closed in a running manner using a 6 inch V-Loc suture. This closed the peritoneum nicely. The left-sided hernia was then repaired in a similar manner by incising the peritoneum in a medial to lateral direction using curved scissors and electrocautery. A dissection plane was then created using blunt dissection as well as occasional cautery. Anand's ligament was dissected out medially. The indirect hernia sac along with a small cord lipoma was reduced. Another ProGrip 10 x 15 mesh was selected. It to was trimmed to size to fit the operative field. This was then laid into position. It laid nicely over the operative field. The peritoneum was then closed in a similar manner using a 6 inch V-Loc suture.. At this point the trocars were ope helena up and insufflation was allowed to escape. Additional local anesthetic was injected. The incisions were then closed using 4-0 Vicryl after the trocars were removed. Skin glue was applied as dressing. He was awakened anesthesia and taken recovery in good condition. Surgical Findings: Bilateral inguinal hernias with associated cord lipomas. Right side lipoma greater than left Complications Complications: No Admit VTE Documentation VTE Present on Admission: No VTE Mechan Device Prophylaxis: SCD's VTE Pharm Prophylaxis ordered?: No Reason prophylaxis not ordered: Treatment Not Indicated
--- NOTE | 2025-03-15 09:30 | DCINST_ITS ---
Discharge Instructions Diet Discharge Diet: Light diet - advance as tolerated Activity Discharge Activity: Return to Normal Activity and May Shower May shower in (days): 1 Ice area for (Minutes): 30 Lifting Restrictions: No lifting pushing or pulling more than 20 pounds for 6 weeks Dressing / Incision Call your doctor if your incision/area has: Continuous Slow Oozing, Sudden Increased Bleeding, Increased Pain/ Swelling, Increased Redness, Foul Smelling Discharge and Swelling at the incision site Call your doctor if you observe: Fever of 101 or Higher Cleanse incision/area with: Soap & Water Follow Up Care Please Follow Up With: Edwin Zadlivar MD When: 2 weeks. Please call office to schedule appointment Test Results: Test results from this visit will be discussed in further detail at your follow- up appointment, if applicable. Discharge Plan Admission Primary Reason for Your Visit: Bilateral inguinal hernia repair Attending Provider: Edwin Zaldivar Primary Care Provider: Medhat Mariee Instructions Print Language: [place] Discharge Orders/Prescriptions Prescriptions: New oxycodone 5 mg tablet 5 mg PO Q8H PRN (Reason: pain) 3 Days Qty: 12 0RF Continued testosterone cypionate 200 mg/mL oil 100 mg IM QWEEK Referrals / Follow Up: Medhat Mariee PA [Primary Care Provider, Urgent Care] Disposition Disposition (needs filled in before D/C Order can be placed): Home, Self Care
[2025-03-15] MEDS: Bupiv/Epi 0.25% 30 ML Vial (09:34)
--- NOTE | 2025-03-15 09:52 | PCM.POST.ANE ---
Anesthesia: Postop Eval I Current Vital Signs Temperature: 97.9 F Pulse Rate: 79 Blood Pressure: 132/71 Respiratory Rate: 20 Pulse Ox: 94 Oxygen Delivery Method: Room Air Assessment Airway patent: Yes Spontaneous unlabored respirations: Yes Mental status: Awake nausea: No Vomiting: No Anesthesia Complication: No Fluid Hydration Crystalloid volume administer (ml): 1,300 Total IV fluid infused: 1,300 Progress Note Anesthesia document: Postop Eval 1 completed: Yes
--- NOTE | 2025-03-15 16:30 | POSTOPAN2_ITS ---
Anesthesia Postop Eval I Sum Postop Eval Completion status Anesthesia document: Postop Eval 1 completed: Yes Anesthesia Postop Eval I Summary Anesthesia Postop Eval I Summary: Anesthesia Postop Eval I: Assessment Summary Airway patent Yes 03/15/25 09:53 [email or web address] Spontaneous unlabored Yes 03/15/25 09:53 [email or web address] respirations Mental status Awake 03/15/25 09:53 [email or web address] nausea No 03/15/25 09:53 [email or web address] Vomiting No 03/15/25 09:53 [email or web address] Anesthesia Postop Eval I: Fluid Summary Crystalloid volume administer 1,300 03/15/25 09:53 [email or web address] (ml) Colloids volume administered ( ml) Blood Product volume administered (ml) Total IV fluid infused 1,300 03/15/25 09:53 [email or web address] Anesthesia Postop Eval I: Summary Notes Anesthesia Complication No 03/15/25 09:53 [email or web address] Anesthesia Complication Comment: Post-operative progress note Anesthesia: Postop Eval II Evaluation Mental status: Awake and Calm Pain Level: 1 nausea: No Vomiting: No
--- NOTE | 2025-03-15 16:30 | PCM.POSTANE2 ---
Anesthesia Postop Eval I Sum Postop Eval Completion status Anesthesia document: Postop Eval 1 completed: Yes Anesthesia Postop Eval I Summary Anesthesia Postop Eval I Summary: Anesthesia Postop Eval I: Assessment Summary Airway patent Yes 03/15/25 09:53 [email or web address] [email or web address] Spontaneous unlabored Yes 03/15/25 09:53 [email or web address] [email or web address] respirations Mental status Awake 03/15/25 09:53 [email or web address] [email or web address] nausea No 03/15/25 09:53 MANAGER [email or web address] Vomiting No 03/15/25 09:53 [email or web address] [email or web address] Anesthesia Postop Eval I: Fluid Summary Crystalloid volume administer 1,300 03/15/25 09:53 [email or web address] [email or web address] (ml) Colloids volume administered ( ml) Blood Product volume administered (ml) Total IV fluid infused 1,300 03/15/25 09:53 [email or web address] [email or web address] Anesthesia Postop Eval I: Summary Notes Anesthesia Complication No 03/15/25 09:53 MANAGER [email or web address] Anesthesia Complication Comment: Post-operative progress note Anesthesia: Postop Eval II Evaluation Mental status: Awake and Calm Pain Level: 1 nausea: No Vomiting: No
== END 2025-03-15 12:52 | disposition home or self-care (01) ==
LOC: SDC 05:49 → AC 05:50
PROVIDERS: PCP Physician Assistant; Referring Provider Surgery; Visit Provider Surgery
DX: K40.20 Bilateral inguinal hernia, without obstruction or gangrene, not specified as recurrent (principal); K21.9 Gastro-esophageal reflux disease without esophagitis; D17.5 Benign lipomatous neoplasm of intra-abdominal organs; F17.220 Nicotine dependence, chewing tobacco, uncomplicated
CPT/HCPCS: 49650; 00840; C1781; J2405